=== PATIENT | female | born 1970 | race Caucasian/White ===

== ENCOUNTER → 2021-03-06 | Outpatient (CLI) | payer OTHER ==
[~2021-03-06] MED LIST: ABILIFY20 MG PO; ABILIFY5 MG PO; ALBUTEROL INH INH; ASPIRIN325 MG PO; CEFDINIR300 MG PO; CHANTIX1 MG PO; CLONAZEPAM0.5 M1 PO; CYCLOBENZAPRINE10 MG PO; CYCLOBENZAPRINE5 MG PO; GABAPENTIN600 MG PO; IBU800 MG PO; KEFLEX500 MG PO; KLONOPIN0.5 MG PO; KLONOPIN2 MG PO; MUCUS RELIEF400 MG PO; NORCO 5-325 TA1 EACH PO; NORCO 7.5-3251 EACH PO; OXYBUTYNIN CHLO15 MG PO; PROZAC40 MG PO; TRAZODONE HCL100 MG PO; VENTOLIN HFA 66.7 GM INH; VITAMIN C500 M1 PO; VITAMIN C500 M4 PO
== END ==
LOC: KOH-I 10:50
DX: M79.672 Pain in left foot (principal)
CPT/HCPCS: 73630

== ENCOUNTER → 2021-07-17 | Outpatient (CLI) | payer OTHER ==
[~2021-07-17] MED LIST changes: +DETROL LA2 MG PO; +LISINOPRIL5 MG PO; +PHENERGAN 25 MG25 M1 PO; +PROAIR HFA8.5 GM INH; +ZANAFLEX4 M1 PO
[2021-07-17 11:41] LABS: BUN/CREATININE RATIO 25 (0-10)
== END ==
LOC: OPSV2 07-04 09:00
PROVIDERS: Podiatrist Foot & Ankle Surgery
DX: Z01.812 Encounter for preprocedural laboratory examination (principal); L72.9 Follicular cyst of the skin and subcutaneous tissue, unspecified
CPT/HCPCS: 36415; 80048

== ENCOUNTER → 2021-07-19 | Day surgery (SDC) | payer OTHER ==
[~2021-07-19] VITALS: Ht 152.4 cm; Wt 65.8 kg
== END | disposition home or self-care (01) ==
LOC: OR 07-12 07:45
PROVIDERS: Podiatrist Foot & Ankle Surgery
PROC: 0KBW0ZZ Excision of Left Foot Muscle, Open Approach (ICD-10-PCS; principal; 2021-07-19 07:30)
PROC: 01NG0ZZ Release Tibial Nerve, Open Approach (ICD-10-PCS; principal; 2021-07-19 07:30)
DX: M85.472 Solitary bone cyst, left ankle and foot (principal); E11.52 Type 2 diabetes mellitus with diabetic peripheral angiopathy with gangrene; I96 Gangrene, not elsewhere classified; E11.9 Type 2 diabetes mellitus without complications; I10 Essential (primary) hypertension; J44.9 Chronic obstructive pulmonary disease, unspecified; F17.210 Nicotine dependence, cigarettes, uncomplicated; E55.9 Vitamin D deficiency, unspecified; K21.9 Gastro-esophageal reflux disease without esophagitis; G43.909 Migraine, unspecified, not intractable, without status migrainosus; G89.29 Other chronic pain; K27.9 Peptic ulcer, site unspecified, unspecified as acute or chronic, without hemorrhage or perforation; M19.90 Unspecified osteoarthritis, unspecified site; R32 Unspecified urinary incontinence; Z20.822 Contact with and (suspected) exposure to COVID-19; Z79.899 Other long term (current) drug therapy; Z88.5 Allergy status to narcotic agent; Z91.040 Latex allergy status
CPT/HCPCS: J0690; J1100; J1170; J1885; J2250; J2405; J2704; J2795; J3010; J3370; J7120; Q4133